=== PATIENT | male | born 1940 | race Caucasian/White ===

== ENCOUNTER 2017-05-09 05:59 | Day surgery (SDC) | payer OTHER ==
[~2017-05-09] VITALS: Ht 175.3 cm; Wt 99.0 kg
[2017-05-09] VITALS (11 sets, daily range): BP systolic 117–147; BP diastolic 79–102; PULSE 68–87; RESP 14–22; TEMP 97.8–98.3; O2SAT 90–97
[2017-05-09] MEDS ORDERED: METOPROLOL TARTRATE 25 MG TAB PO PRN (06:30)
[2017-05-09] MEDS ORDERED: CHLORHEXIDINE GLUCONATE 2 % 1 PACK (2 CLOTHS) TOPICAL PRN (06:30)
[2017-05-09] MEDS ORDERED: POVIDONE IODINE 5% (ANTISEPSIS KIT) 4 APPLICATIONS EACH NARE PRN (06:30)
[2017-05-09] MEDS ORDERED: LORazepam 1 MG TAB SL SCH (06:30)
[2017-05-09] MEDS ORDERED: SODIUM CHLORID 0.9% 500 ML IV PRN (06:30)
[2017-05-09] MEDS: SODIUM CHLORID 0.9% 500 ML INJ 500 ML IV SCH ×2 (06:30→23:10)
[2017-05-09] MEDS ORDERED: INSULIN HUMAN REGULAR 1,000 UNITS/10 ML VIAL SQ PRN (06:30)
[2017-05-09] MEDS ORDERED: LACTATED RINGER'S 1000 ML IV PRN (06:30)
[2017-05-09] MEDS ORDERED: DOCU100C PO (07:14)
[2017-05-09] MEDS ORDERED: ATOR40TA16 PO (07:14)
[2017-05-09] MEDS ORDERED: NEXI40CA PO (07:14)
[2017-05-09] MEDS ORDERED: APIX5TAB PO (07:14)
[2017-05-09] MEDS ORDERED: DIPH-148 PO (07:14)
[2017-05-09 07:15] LABS: AUTOMATED NEUTROPHIL # 4.3 TH/MM3 (1.8-7.7); BASOPHIL # 0.1 TH/MM3 (0-0.2); BASOPHIL % 0.7 % (0.0-2.0); EOSINOPHIL # 0.3 TH/MM3 (0-0.4); EOSINOPHIL % 3.5 % (0.0-4.0); HEMATOCRIT 45.2 % (39.0-51.0); LYMPH % 36.7 % (9.0-44.0); LYMPHOCYTE # 3.1 TH/MM3 (1.0-4.8); MEAN CELL VOLUME 87.3 FL (80.0-100.0); MEAN CORPUSCULAR HEMOGLOBIN 30.6 PG (27.0-34.0); MONO % 7.9 % (0.0-8.0); NEUT % 51.2 % (16.0-70.0); PLATELET COUNT 213 TH/MM3 (150-450); RED BLOOD COUNT 5.17 MIL/MM3 (4.50-5.90); RED CELL DISTRIBUTION WIDTH 13.9 % (11.6-17.2); WHITE BLOOD COUNT 8.5 TH/MM3 (4.0-11.0)
[2017-05-09 07:17] LABS: HEMO FLAGS AUTO DIFF
[2017-05-09 07:26] LABS: APTT (PATIENT) 28.2 SEC (24.3-30.1); PROTHROMBIN TIME - PATIENT 10.7 SEC (9.8-11.6)
[2017-05-09] MEDS ORDERED: HEPARIN-D5W INJ 250 ML ONE (07:36)
[2017-05-09] MEDS ORDERED: HEPARIN SODIUM - IV 10,000 UNITS/10 ML VIAL ONE (07:36)
[2017-05-09] MEDS ORDERED: fentaNYL CITRATE 250 MCG/5 ML AMP ONE (07:36)
[2017-05-09] MEDS ORDERED: ISOPROTERENOL HCL 1 MG/5 ML AMP ONE (07:36)
[2017-05-09] MEDS ORDERED: LEVOFLOXACIN 500 MG PREMIX INJ 100 ML IV ONE (07:39)
[2017-05-09] MEDS ORDERED: HEPARIN-NS/PF INJ 500 ML ONE (07:42)
[2017-05-09 07:47] LABS: BICARBONATE 29.3 MEQ/L (21.0-32.0); POTASSIUM 3.8 MEQ/L (3.5-5.1)
[2017-05-09 08:10] LABS: PLATELET ESTIMATE SMEAR NORMAL (NORMAL); PLATELET MORPHOLOGY NORMAL (NORMAL); SCAN/DIFF AUTO DIFF CONFIRMED
[2017-05-09] MEDS ORDERED: PROTAMINE SULFATE 50 MG/5 ML VIAL ONE (10:24)
[2017-05-09] MEDS ORDERED: FUROSEMIDE 40 MG/4 ML VIAL ONE (10:27)
--- NOTE | 2017-05-09 10:50 | PD.CARD ---
Atrial Fibrillation Ablation PROCEDURE DATE: May 09, 2017 PROCEDURES PERFORMED: 1. Electrophysiology study on Isuprel infusion 2. CS cannulation 3. 3-D mapping 4. Transseptal approach 5. Right and left heart catheterization 6. Intracardiac echo 7. Radiofrequency ablation of atrial fibrillation 8. Pulmonary vein isolation 9. Posterior wall ablation 10. Mitral line creation 11. Anterior wall ablation INDICATIONS FOR THE PROCEDURE Mr. Rojas is a 76-year-old male with atrial fibrillation, symptomatic, on anticoagulation referred for electrophysiology study and ablation. The risks, the nature and the benefits of the procedure were clearly stated to him. The risks include pneumothorax, cardiac perforation, stroke, need for open heart surgery and even . The patient understood and agreed to proceed. DESCRIPTION OF THE PROCEDURE IN DETAIL As written informed consent was obtained prior to esophageal echocardiogram, the patient was kept on the table where he was prepped and draped in the usual sterile fashion. Conscious sedation was initiated and maintained throughout the procedure by the anesthesiologist. Once sedation was verified, the right and left inguinal areas were anesthetized with 2% Xylocaine. Using modified Seldinger technique, the left femoral vein was cannulated on three occasions, three guidewires were advanced. Over the wire a 6, 7 and a 10-St Helenian Hemaquet were advanced. Then the left femoral artery was cannulated on one occasion, one guidewire was advanced. Over the wire a 4-St Helenian Hemaquet was advanced. Then the right femoral vein was cannulated on one occasion, one guidewire was advanced. Over the wire a 8-St Helenian Hemaquet was advanced. Then under fluoroscopic guidance through the 6 and 7-St Helenian Hemaquet, two 5-St Helenian [place] curved quadripolar electrophysiology catheters were advanced and placed around the His as well as coronary sinus. Basic interval was measured. The patient was in sinus rhythm. Through the 10-St Helenian Hemaquet, a Cordis Palacios AcuNav intracardiac echo catheter was advanced and placed at the right atrium. Multiple view was obtained. There is pericardial effusion, pulmonary vein was seen, atrial septal was visualized. Then the 8-St Helenian Hemaquet in the right femoral vein was exchanged for Agilis transseptal sheath that was placed all the way to the superior vena cava. Through the sheath a Daya needle was advanced, then the sheath, the dilator and the needle were progressed until foci engaged. Once engaged, the needle was advanced. RF was delivered for 2 seconds. I was able to cross into the left atrium. Once the needle crossed, the dilator was advanced. Once the dilator crossed, the sheath was advanced. Once the sheath crossed, the dilator and the needle were removed. At this point I did flush the system and fluid movement was seen in the left atrium the indicates the sheath is in good position. The patient already received 10,000 units of heparin. The goal is to keep an ACT around 350 during ablation. Then through the sheath a St. Mukesh 20 pulse circumferential catheter was advanced. Using [employer] endocardial solution mapping system, a two-dimensional configuration of the left atrium was obtained. Points were taken at the left superior and inferior veins, right superior and inferior veins, mitral valve, and appendages. Then through the sheath a St. Mukesh TactiCath 65cm 3.5mm irrigated tipped mapping and radiofrequency ablation catheter was advanced. Esophageal probe was placed temperature monitoring during ablation. When it increased to 0.5 degrees Celsius above baseline, I moved to a different area of the atrium. First I did isolate the left superior and inferior vein. There is a left common. I did make a big lone pine around the veins. Posterior was ablated. A mitral line was created. Then the right superior and inferior veins were isolated. At that point I did advance the circumferential catheter again into the vein. There was no signal into the vein, pacing from the vein showed no conduction to the atrium. Isuprel infusion was initiated at 20 mcg for over 10 minutes. No tachyarrhythmia was induced, post Isuprel no tachyarrhythmia was induced. At that point the procedure was complete. All catheters were removed, atrial septal sheath was exchanged for 9-St Helenian Hemaquet, intracardiac echo showed no pericardial effusion. There is still good flow in the pulmonary vein. The patient is going to be transferred to the recovery room. No incident report. The patient tolerated the procedure. Blood loss was minimal. FINDINGS 1. Electrocardiogram: At baseline the patient was in sinus rhythm. Post procedure electrocardiogram was unchanged. 2. Basic interval: Base cycle length was around 860. AH at 100 and HV at 36 milliseconds. 3. Tachyarrhythmia: Atrial fibrillation was mapped and ablated. The ablation was successful. CONCLUSION Successful electrophysiology study, mapping, radiofrequency ablation of atrial fibrillation, pulmonary vein isolation, posterior ablation, mitral line creation. COMMENTS AND RECOMMENDATIONS The patient is going to be transferred to the telemetry unit. Will be observed and when stable can be discharged home. Markel Mata MD May 09, 2017 10:50
[2017-05-09] MEDS ORDERED: ATROPINE SULFATE 1 MG/ML VIAL IV PRN (11:00)
[2017-05-09] MEDS ORDERED: oxyCODONE/ACETAMINOPHEN 5 MG/325 MG TAB PO PRN ×2 (11:00)
[2017-05-09] MEDS ORDERED: METOCLOPRAMIDE HCL 10 MG/2 ML VIAL IV PRN (11:00)
[2017-05-09] MEDS ORDERED: LIDOCAINE HCL 1% 50 ML VIAL INFIL PRN (11:00)
[2017-05-09] MEDS ORDERED: ONDANSETRON HCL 4 MG/2 ML VIAL IV PRN (11:00)
[2017-05-09] MEDS ORDERED: LORazepam 2 MG/ML VIAL IV PRN (11:00)
[2017-05-09] MEDS ORDERED: SODIUM CHLOR 0.9% 250 ML INJ 250 ML IV PRN (11:00)
--- NOTE | 2017-05-09 11:11 | CATHPROC ---
Conduit HIS Report Study Information Study Number Admission Scheduled Start Study Start [id number] May 09 2017 5:59AM 05/09/2017 May 09 2017 6:59AM [facility]gil Service Electrophysiology Study Admit Source Facility Department Other [facility] - Liner Assembler Physician and Clinical Staff Initial Markel Travis Branch Store Manager Bradley Strauss,RT(R) Other Anesthesia, ELECTRONIC HEALTH RECORDS SPECIALIST Other Lyn Michelle,BSRN Recorder Blanka Melchor,JARED Scrub Milagros Vargas RCIS Procedures Performed Procedure Location (Site) Vessel Name Ablation Procedure ICE CATHETER INSERT RA Atruim Equipment Time Financial Secretary Description Size Mfg Part Number Used/Scraped NEEDLE, TRANSSEPTAL NRG 98 07:25 [facility] [id number] Used C1 [employer]/ EP 07:25 KIT, TRANSDUCER / AFIB [id number] Used PACER [id number] CATHETER, TACTICATH ABLAT BUNDLE 07:25 BUNDLE-[facility]. LYNDA Used 65 BUNDLE *[id number] BUNDLE [id number] CATHETER, FR7 OPTIMA SPIRAL 07:25 BUNDLE-[facility]YNDA FR7 *[id number] Used BUNDLE BUNDLE [id number] 07:25 BUNDLE-[employer]. [facility]YNDA CATHETER, JSN, QUAD BUNDLE FR 5 *[id number] Used BUNDLE [id number] 07:25 BUNDLE-[employer]. LYNDA CATHETER, JSN, QUAD BUNDLE FR 5 *[id number] Used BUNDLE [id number] SET, COOL POINT TUBING 07:25 BUNDLE-ST. LYNDA *[id number]- Used BUNDLE BUNDLE SHEATH, FR8.5 STEERABLE SM 07:25 BUNDLE-[facility]. LYNDA 71CM [id number] Used 71CM BUNDLE COVER, TRANSDUCER CABLE 07:25 [employer] [id number] Used ACUNAV 07:25 CORDIS/PACER SHEATH, FR10 YANELY 11CM FR 10 [id number] Used 07:25 CORDIS/PACER SHEATH, FR9 YANELY 11CM FR 9 [id number] Used [id number] 07:25 MED[employer] PACK, CCL CUSTOM * Used *[id number] 07:25 MEDLINE PACER BRIONES, LIMB * 2140 *[id number] Used [id number] 07:25 [employer] MEDICAL SHEATH, FR4.5 PRELUDE 11CM FR 4.5 Used [id number] 07:25 NAMIC TUBING, HIGH PRESSURE 48" 48" Used *[id number] 07:25 NAMIC TUBING, HIGH PRESSURE 48" 48" Used *[id number] 07:25 [employer] MEDICAL BLANKET,WARM AIR CCL * Used *[id number] 07:25 [facility]YN[facility] MEDICAL ELECTRODE KIT, MARISEL X SURFACE * [id number] Used 07:25 [facility]YN[facility] MEDICAL SHEATH, EPS, FR6 FAST CATH FR 6 [id number] Used 07:25 [facility]YN[facility] MEDICAL SHEATH, EPS, FR7 FAST CATH FR 7 [id number] Used 07:25 [facility]YN[facility] MEDICAL SHEATH, EPS, FR8 FAST CATH FR 8 [id number] Used CATHETER, ACUNAV FR10 ICE [id number] 08:55 SRAVANTHI FR 10 Used (SRAVANTHI) *[id number] [facility] PAD, ELECTROSURGICAL 07:25 * [id number] *[id number] Used SURGICAL GROUNDING (BLUE) History: Allergies Allergy Reaction No Known Allergies History: Risk Factors Hypertension Dyslipidemia Yes Yes Cerebrovascular Disease History: Other Disease Selection Items CAD HTN Labs Hgb (g/dl) Hct (%) RBC (MIL/MM3) WBC (l/cumm) Platelets (thousands) 11.60-17.00 35.00-51.00 4.00-5.90 4.00-11.00 150.00-450.00 15.0 45 5.1 8.5 213 Glucose (mg/dl) BUN (mg/dl) Creatinine (mg/dl) BUN:Creatinine (1:x) 74.00-106.00 7.00-18.00 0.50-1.30 10.00-20.00 115 21 1.1 19.1 Na (meq/l) K (meq/l) Cl (meq/l) CO2 (mmol/L) Ca (mg/dl) 136.00-145.00 3.50-5.10 98.00-107.00 21.00-32.00 8.50-10.10 143 3.8 105 29.3 8.6 INR (PTT:PT) 0.90-1.10 1 Medication Medication Total Dose (Bolus/Oral) Medication Total Dosage/Unit 1% XYLOCAINE 40 mL HEPARIN 77407 units METOPROLOL 5 mg PROTAMINE 40 mg Medications (Bolus/Oral) Medication Time Given Dosage/Unit Administered By Reason 1% XYLOCAINE 05/09/2017 8:47:14 AM 20 mL Markel Mata For pain 20 mL 1% XYLOCAINE given in lab by Markel Mata in Left Groin via Subcutaneous. Ordered by Tavo Mata. Reason: For pain. 1% XYLOCAINE 05/09/2017 8:51:51 AM 20 mL Markel Mata For pain 20 mL 1% XYLOCAINE given in lab by Markel Mata in Right Groin via Subcutaneous. Ordered by Rachel Mata. Reason: For pain. HEPARIN 05/09/2017 8:59:00 AM 70636 units Anesthesia, ELECTRONIC HEALTH RECORDS SPECIALIST As per physicians v erbal order 65648 units HEPARIN given in lab by Anesthesia, ELECTRONIC HEALTH RECORDS SPECIALIST in Right Antecubital via Peripheral IV. Ordered by Markel Mata. Reason: As per physicians verbal order. HEPARIN 05/09/2017 9:13:48 AM 2000 units Anesthesia, ELECTRONIC HEALTH RECORDS SPECIALIST As per physicians ve rbal order 2000 units HEPARIN given in lab by Anesthesia, ELECTRONIC HEALTH RECORDS SPECIALIST in Right Antecubital via Peripheral IV. Ordered b Markel Baez. Reason: As per physicians verbal order. HEPARIN 05/09/2017 9:29:12 AM 1000 units Anesthesia, ELECTRONIC HEALTH RECORDS SPECIALIST As per physicians ve rbal order 1000 units HEPARIN given in lab by Anesthesia, ELECTRONIC HEALTH RECORDS SPECIALIST via Peripheral IV. Ordered by Markel Mata. Reas on: As per physicians verbal order. METOPROLOL 05/09/2017 10:17:24 AM 5 mg Anesthesia, ELECTRONIC HEALTH RECORDS SPECIALIST As per physicians ve rbal order 5 mg METOPROLOL given in lab by Anesthesia, ELECTRONIC HEALTH RECORDS SPECIALIST in Right Antecubital via Peripheral IV. Ordered by Markel Wyatt. Reason: As per physicians verbal order. PROTAMINE 05/09/2017 10:24:14 AM 40 mg Anesthesia, ELECTRONIC HEALTH RECORDS SPECIALIST As per physicians forest bal order 40 mg PROTAMINE given in lab by Anesthesia, ELECTRONIC HEALTH RECORDS SPECIALIST in Right Antecubital via Peripheral IV. Ordered by Markel Wyatt. Reason: As per physicians verbal order. Medication (Drip) Medication Time Given Dosage/Unit Concentration/Unit Diluent (ml) Solution HEPARIN DRIP 05/09/2017 9:14:15 AM 1000 units/hr 16293 units 250 D5W 1000 units/hr HEPARIN DRIP given in lab by Anesthesia, ELECTRONIC HEALTH RECORDS SPECIALIST in Right Antecubital via Peripheral IV. P ump/Drip Flow = 10 ml/hr [place] [address] units in 250 ml. Ordered by Markel Mata. ISUPREL 05/09/2017 10:04:02 AM 20 mcg/min 1 mg 250 NaCl .9 20 mcg/min ISUPREL given in lab by Anesthesia, ELECTRONIC HEALTH RECORDS SPECIALIST in Right Antecubital via Peripheral IV. Pump/Drip Flow = 300 ml/hr using NaCl .9 with a concentration of 1 mg in 250 ml. Ordered by Markel Mata. Reason: As per physicians verbal order. LEVAQUIN 05/09/2017 7:55:00 AM 100 mL/hr 500 100 NaCl .9 100 mL/hr LEVAQUIN given in lab by Anesthesia, ELECTRONIC HEALTH RECORDS SPECIALIST in Right Antecubital via Peripheral IV. Pump/Drip Flow = 0 ml/hr using NaCl .9 with a concentration of 500 in 100 ml. Ordered by Markel Mata. Reason: As per physicians verbal order. Initial Case Assessment Cardiovascular HR Rhythm NIBP Chest Pain 66 sr 152/102 0 Edema Present Skin color Skin None Normal Warm Dry Circulatory - Right Pulses Dorsalis Pedis Radial 1 2 Scale (0,1,2,3,4,d) Circulatory - Left Pulses Dorsalis Pedis Radial 2 2 Scale (0,1,2,3,4,d) Circulatory - Lower Extremities Color Lower Right Color Lower Left Normal Normal Neurological State Oriented to time-place- Alert Moves all extremities person Respiration - General Respiration Rate SpO2 (%) (B/min) 20 96 Final Case Assessment Cardiovascular HR NIBP Chest Pain 74 113/75 0 Edema Present Skin color Skin None Normal Warm Dry Neurological State Oriented to time-place- Alert Moves all extremities person Respiration - General Respiration Rate SpO2 (%) (B/min) 18 95 Chronological Log Time Study Chronological Log 7:25:06 Patient arrived via Bed. 7:25:08 Patient Name, D.O.B, / Armband Verified By R.N. 7:25:09 Consent signed by the physician and the patient and verified by the Liner Assembler staff. 7:25:10 Pre-op and post- op instructions given; patient acknowledges understanding of instructions. 7:25:11 Verbal Stimulation=2 Physical Stimulation=2 Airway=2 Respiration=2 TOTAL=8. (0=absent, 1=san ited, 2=present) 7:25:21 Patient has been NPO for More than 6Hrs. 7:25:22 Skin Breakdown- none per pt 7:25:30 Patient Warmer Placed on the Table. 7:25:31 Disposable Defibrillator Pads Placed On Patient. 7:25:33 Markus Prominences Protected 7:25:34 A # 20 IV was noted in the Antecubital (right). Grade = 0 0.9ns kvo 7:25:35 A # 20 IV was noted in the Antecubital (left). Grade = 0 0.9ns kvo 7:25:36 History and physical on the chart or being dictated. Assessment: Initial Case, HR=66 BPM, Rhythm=sr, PWIA=522/102 mmhg, Chest Pain=0, Edema=None, Col or=Normal, Skin = Warm, Dry Right Pulses: Heriberto Ped=1, Radial=2 Left Pulses: Heriberto Ped=2, Radial=2 7:32:34 Lower Right Extremities: Color=Normal Lower Left Extremities: Color=Normal Neurological: State=Alert, Ox3, PURCELL Respiration: Resp=20 B/min, SpO2=96 % 7:34:16 Table restraints applied according to hospital policy 7:36:42 Anesthesia at bedside. Assumes care of patient. Nathaniel 7:41:17 Reference ECG taken 7:55:00 Indwelling uretheral catheter inserted with clear yellow urine noted. 100 mL/hr LEVAQUIN given in lab by Anesthesia, ELECTRONIC HEALTH RECORDS SPECIALIST in Right Antecubital via Peripheral IV. Pump /Drip Flow = 0 7:55:00 ml/hr using NaCl .9 with a concentration of 500 in 100 ml. Ordered by Markel Mata. Reason: As per physicians verbal order. 8:03:43 Anesthesiologist present for intubation 8:09:19 Bilateral groins prepped with 2% chlorhexidine, and with a 3 min. waiting time. 8:42:00 Case Start 8:42:30 MD arrived. 8:42:44 Immediate Presedation assesment performed by physician. Time Out. Correct patient, procedure, procedure equipment, site and side verified with physician present. Time 8:42:47 concurred by MD, individual staff and ELECTRONIC HEALTH RECORDS SPECIALIST. Time Out #2 - Consents verified, patient in correct position, all results are labled and display ed, safety precautions 8:42:50 taken, antibiotics administered. Time out concurred by MD, individual staff and ELECTRONIC HEALTH RECORDS SPECIALIST in procedur e 8:43:21 MALLORY begun at bedside. 8:46:41 MALLORY completed. 20 mL 1% XYLOCAINE given in lab by Markel Mata in Left Groin via Subcutaneous. Ordered by Markel Grover. 8:47:14 Reason: For pain. 8:47:40 Vascular access was obtained in the Fem Art (left). 8:48:00 Vascular access was obtained in the Fem Vein (left). 8:48:04 Vascular access was obtained in the Fem Vein (left). 8:48:05 Vascular access was obtained in the Fem Vein (left). 8:48:15 A SHEATH, FR4.5 PRELUDE 11CM FR 4.5 was advanced into the Fem Art (left) using the Percutane ous technique. 8:48:33 A SHEATH, EPS, FR6 FAST CATH FR 6 was advanced into the Fem Vein (left) using the Percutaneo us technique. 8:48:50 A SHEATH, EPS, FR7 FAST CATH FR 7 was advanced into the Fem Vein (left) using the Percutaneo us technique. 8:49:01 A SHEATH, FR10 YANELY 11CM FR 10 was advanced into the Fem Vein (left) using the Percutaneou s technique. 20 mL 1% XYLOCAINE given in lab by Markel Mata in Right Groin via Subcutaneous. Ordered by Markel Perera. 8:51:51 Reason: For pain. 8:52:24 Vascular access was obtained in the Fem Vein (right). 8:52:27 A SHEATH, FR10 YANELY 11CM FR 10 was advanced into the Fem Vein (right) using the Percutaneo us technique. A CATHETER, JSN, QUAD BUNDLE FR 5 was advanced vis Fem Vein (left) and placed in the CS. Placem ent was visually 8:52:56 confirmed under fluoroscopy. A CATHETER, JSN, QUAD BUNDLE FR 5 was advanced vis Fem Vein (left) and placed in the HIS. Place ment was 8:53:15 visually confirmed under fluoroscopy. 8:54:41 CATHETER, ACUNAV FR10 ICE (SRAVANTHI) FR 10 Was Postioned. A SHEATH, FR8.5 STEERABLE SM 71CM BUNDLE 71CM was exchanged in the Fem Vein (right). This was n ecessary in 8:58:22 order for catheter support. 8:58:39 Hodges [place]. 55153 units HEPARIN given in lab by Anesthesia, ELECTRONIC HEALTH RECORDS SPECIALIST in Right Antecubital via Peripheral IV. Or dered by Esperanza, 8:59:00 Markel. Reason: As per physicians verbal order. 9:00:32 Transseptal. A CATHETER, FR7 OPTIMA SPIRAL BUNDLE FR7 was advanced vis Fem Vein (right) and placed in the LA . Placement 9:02:08 was visually confirmed under fluoroscopy. 9:02:29 Mapping in progress. 9:06:48 Activated Clotting Time Drawn 9:09:22 Mapping complete. 9:09:30 Orting catheter removed. A CATHETER, TACTICATH ABLAT 65 BUNDLE was advanced vis Fem Vein (right) and placed in the LA. P lacement was 9:10:09 visually confirmed under fluoroscopy. 9:13:37 ACT (Normal Range 90-180) = 331 2000 units HEPARIN given in lab by Anesthesia, ELECTRONIC HEALTH RECORDS SPECIALIST in Right Antecubital via Peripheral IV. Ord ered by Markel Mata. 9:13:48 Reason: As per physicians verbal order. 1000 units/hr HEPARIN DRIP given in lab by Anesthesia, ELECTRONIC HEALTH RECORDS SPECIALIST in Right Antecubital via Peripheral IV. Pump/Drip Flow = 9:14:15 10 ml/hr [place] [address] units in 250 ml. Ordered by Markel Mata. 9:18:27 Ablation in progress. 9:19:41 Activated Clotting Time Drawn 9:29:06 ACT (Normal Range 90-180) = 342 1000 units HEPARIN given in lab by Anesthesia, ELECTRONIC HEALTH RECORDS SPECIALIST via Peripheral IV. Ordered by Markel Mata . Reason: As per 9:29:12 physicians verbal order. 9:37:56 Activated Clotting Time Drawn 9:43:23 ACT (Normal Range 90-180) = 360 9:55:37 Ablation catheter removed. Orting catheter inserted. 10:00:00 Sheaths removed; pressure applied to access site. Hemostasis achieved. 20 mcg/min ISUPREL given in lab by Anesthesia, ELECTRONIC HEALTH RECORDS SPECIALIST in Right Antecubital via Peripheral IV. Pum p/Drip Flow = 300 10:04:02 ml/hr using NaCl .9 with a concentration of 1 mg in 250 ml. Ordered by Markel Mata. Reaso n: As per physicians verbal order. 10:10:08 Activated Clotting Time Drawn 10:15:23 Isuprel gtt turned off. 10:16:54 ACT (Normal Range 90-180) = 322 5 mg METOPROLOL given in lab by Anesthesia, ELECTRONIC HEALTH RECORDS SPECIALIST in Right Antecubital via Peripheral IV. Ordere d by Markel Mata. 10:17:24 Reason: As per physicians verbal order. A SHEATH, FR9 YANELY 11CM FR 9 was exchanged in the Fem Vein (right). This was necessary in ord er to achieve 10:20:00 vascular hemostasis. 10:23:00 Catheters removed. 40 mg PROTAMINE given in lab by Anesthesia, ELECTRONIC HEALTH RECORDS SPECIALIST in Right Antecubital via Peripheral IV. Order ed by Markel Mata. 10:24:14 Reason: As per physicians verbal order. 10:26:11 Ablation procedure performed: AFIB. 10:26:21 EP Procedure was performed. 10:27:25 Cine recording checked. 10:32:30 Activated Clotting Time Drawn 10:35:14 ACT (Normal Range 90-180) = 135 10:36:16 All sheaths removed and pressure held for 30 minutes. Hemostasis achieved. Assessment: Final Case, HR=74 BPM, CSRA=770/75 mmhg, Chest Pain=0, Edema=None, Color=Normal, S kin = Warm, Dry 10:37:40 Neurological: State=Alert, Ox3, PURCELL Respiration: Resp=18 B/min, SpO2=95 % 10:48:24 PACU called. Spoke to Mackenzie. 10:48:33 Bedside Report will be given. 10:48:38 Defibrillator and ground pads removed. Skin intact. 11:09:22 Sterile dressing applied to site 11:10:00 No case complications noted. 11:10:40 Case End 11:10:[address] [facility] and transported to PACU in stable condition. End Study - Contrast Media Used In Study Contrast Total Opened (mL) Total Used (mL) Total Wasted (mL) Unspecified 0 0 0 End Study - Maximum Contrast Load Max Contrast Load (mL) 461.0 End Study - Radiation Exposure Fluoro Time (minutes) 2.7 End Study - Patient Disposition Complications Transferred To Interventional Outcome No Telemetry Bed successful
[2017-05-09] MEDS ORDERED: BACITRACIN OINT 0.9 GM PKT TOP ONE (11:45)
--- NOTE | 2017-05-09 14:08 | EKG ---
Date Performed: 05/09/2017 Time Performed: 07:05:50 PTAGE: 76 years EKG: Sinus arrhythmia. Incomplete RBBB Possible inferior infarct - age undetermined Septal ST-T changes are nonspecific Abnormal ECG NO PREVIOUS TRACING DOCTOR: Db Flowers Interpretating Date/Time 05/09/2017 14:05:48
[2017-05-09] MEDS ORDERED: PROPOFOL 200 MG/20 ML AMP IV ONE (14:46)
[2017-05-09] MEDS ORDERED: SODIUM CHLORID 0.9% 500 ML BAG OTHER ONE (14:46)
[2017-05-09] MEDS: APIXABAN 5 MG TABLET PO SCH ×2 (16:41→21:08)
[2017-05-09] MEDS ORDERED: ATORVASTATIN 40 MG TAB PO SCH (21:00)
[2017-05-10] VITALS (11 sets, daily range): BP systolic 105–133; BP diastolic 70–86; PULSE 66–82; RESP 16–18; TEMP 98–98.3; O2SAT 97
[2017-05-10 08:33] LABS: APTT (PATIENT) 29.6 SEC (24.3-30.1); INTERNATIONAL NORMALIZED RATIO 1.1 RATIO; PROTHROMBIN TIME - PATIENT 11.7 SEC (9.8-11.6)
[2017-05-10] MEDS: APIXABAN 5 MG TABLET PO SCH (08:54)
[2017-05-10] MEDS ORDERED: PANTOPRAZOLE SOD 40 MG DELAYED RELEASE TAB PO SCH (09:00)
--- NOTE | 2017-05-10 10:33 | HHI.PR ---
Subjective Remarks Feeling better Objective Vital Signs Date Time Temp Pulse Resp B/P Pulse Ox O2 Delivery O2 Flow Rate FiO2 05/10/17 10:00 71 05/10/17 09:00 74 05/10/17 08:00 72 05/10/17 08:00 98.3 72 18 133/86 97 05/10/17 07:00 66 05/10/17 06:00 71 05/10/17 05:00 68 05/10/17 04:00 98.3 68 16 105/70 97 05/10/17 04:00 70 05/10/17 03:00 75 05/10/17 02:00 80 05/10/17 01:00 82 05/10/17 00:00 98.0 80 18 127/78 97 05/10/17 00:00 72 05/09/17 23:00 79 05/09/17 22:00 82 05/09/17 21:00 81 05/09/17 20:00 80 05/09/17 20:00 98.3 77 22 117/79 90 05/09/17 19:00 77 05/09/17 18:00 76 05/09/17 17:00 78 05/09/17 16:00 74 05/09/17 15:00 97.8 72 14 137/87 97 05/09/17 15:00 73 05/09/17 14:00 68 05/09/17 13:00 97.5 68 16 128/88 95 Nasal Cannula 2 05/09/17 12:45 69 14 126/84 93 05/09/17 12:30 69 12 129/86 93 05/09/17 12:15 67 7 128/88 94 05/09/17 12:00 67 7 126/83 95 05/09/17 11:45 68 6 126/91 91 Nasal Cannula 4 05/09/17 11:35 97.5 68 8 116/83 89 Nasal Cannula 3 I/O 05/09/17 05/09/17 05/09/17 05/10/17 05/10/17 05/10/17 07:00 15:00 23:00 07:00 15:00 23:00 Intake Total 1400 ml 720 ml 240 ml Output Total 1960 ml 600 ml Balance -560 ml 120 ml 240 ml Intake Oral 720 ml 240 ml Other 1400 ml Output Urine Total 1350 ml 600 ml Estimated Blood Loss 10 ml Other 600 ml # Voids 2 # Bowel Movements 1 Result Diagram: 05/09/17 0639 05/09/1739 Imaging Alert, fully oriented Lungs: ventilated Heart: S1, S2 regular, no gallop Abdomen: soft, no mass Ext: no edema Current Medications Medications (Trade) Dose Ordered Sig/Zaida Route Start Time Stop Time Status Last Admin Lactated Ringer's 1,000 ml @ 30 mls/hr Q24H PRN IV 05/09/17 06:30 05/12/17 06:29 Sodium Chloride 500 ml @ 30 mls/hr [id number] PRN IV 05/09/17 06:30 05/12/17 06:29 (NS 500 ml Inj) 500 ml @ 30 mls/hr [id number] IV 05/09/17 06:30 (Percocet 5-325 Mg) 1 tab Q4H PRN PO 05/09/17 11:00 (Percocet 5-325 Mg) 2 tab Q4H PRN PO 05/09/17 11:00 (Ativan Inj) 0.5 mg UNSCH PRN IV 05/09/17 11:00 05/10/17 10:59 (Atropine Inj) 0.5 mg UNSCH PRN IV 05/09/17 11:00 (Reglan Inj) 10 mg Q4H PRN IV 05/09/17 11:00 (Zofran Inj) 4 mg Q4H PRN IV 05/09/17 11:00 (Xylocaine 1% Inj (50 ml)) 10 ml UNSCH PRN INFIL 05/09/17 11:00 05/10/17 10:59 (Eliquis) 5 mg BID PO 05/09/17 12:30 05/10/17 08:54 (Lipitor) 40 mg HS PO 05/09/17 21:00 05/09/17 21:08 (Protonix) 40 mg DAILY PO 05/10/17 09:00 05/10/17 08:54 Assessment and Plan Problem List: (1) Atrial fibrillation Status: Acute Plan: SP ablation. Doing well In sinus rhythm. Can be DH Follow up as previously scheduled. (2) Palpitations Status: Acute Plan: No tachy reported Markel Mata MD May 10, 2017 10:33
--- NOTE | 2017-05-10 14:03 | EKG ---
Date Performed: 05/09/2017 Time Performed: 12:08:16 PTAGE: 76 years EKG: Sinus rhythm WITH SINUS ARRHYTHMIA INCOMPLETE RIGHT BUNDLE BRANCH BLOCK NONSPECIFIC T-WAVE ABNORMALITY Since prev ious tracing, no significant change noted BORDERLINE ECG PREVIOUS TRACING : 05/09/2017 07.05 DOCTOR: Ross Glez Interpretating Date/Time 05/10/2017 14:01:52
--- NOTE | 2017-05-10 14:03 | EKG ---
Date Performed: 05/10/2017 Time Performed: 05:16:40 PTAGE: 76 years EKG: Sinus rhythm Incomplete RBBB Inferior T wave changes are nonspecific Since previous tracing, no significant alford e noted Borderline ECG PREVIOUS TRACING : 05/09/2017 12.08 DOCTOR: Ross Glez Interpretating Date/Time 05/10/2017 14:01:39
== END 2017-05-10 10:59 | disposition home or self-care (01) ==
LOC: HDIC 05:59 → HDOC 05:59 → HCIS 13:11 → HDOC 05-10 10:59
PROVIDERS: ATTEND Internal Medicine Interventional Cardiology
DX: I48.91 Unspecified atrial fibrillation (principal); R00.2 Palpitations; I45.10 Unspecified right bundle-branch block; I49.8 Other specified cardiac arrhythmias; R94.31 Abnormal electrocardiogram [ECG] [EKG]; I10 Essential (primary) hypertension; E78.5 Hyperlipidemia, unspecified; E66.9 Obesity, unspecified
CPT/HCPCS: 80048; 85002; 85025; 85610; 85730; 86850; 86900; 86901; 93005; 93312; 93320; 93325; 93613; 93623; 93656; 93662; C1730; C1731; C1732; C1759; C1766; C2630; J1644; J1940; J1956; J2720; J3010; J7040